=== PATIENT | female | born 1950 | race Caucasian/White ===

== ENCOUNTER 2016-06-21 17:32 | Emergency (ER) | payer OTHER ==
[2016-06-21 18:26] VITALS: BP 162/107
--- NOTE | 2016-06-21 18:49 | EDM.PDOC ---
ED HPI Skin/Rash - General Chief Complaint: Headache Stated Complaint: HEAD PAIN Time Seen by Provider: 06/21/16 18:20 Source: Reports: Patient, Family (Supposed provide some history) History Limitations: Reports: Other (Poor memory for recent events) - History of Present Illness INITIAL COMMENTS - FREE TEXT/NARRATIVE: Brought in by because of persisting pain in her scalp Chief complaint Painful red area of scalp HPI 65-year-old male who started developing pain redness swelling in her scalp right posterior area about 1-1/2 weeks ago. She is unclear exactly when it started and is unclear if the redness of the rash or the pain came first. Describes it as being a T. and sore. No history of injury or fall. Seen in urgent care yesterday at her hometown [place], there was some concern that she might event, and was told to go to the emergency room. Alternatively they recommended seeing a skin doctor which the was able to arrange. The skin doctor felt it was an infection and prescribed doxycycline. She remembers having some sort of information like this in the past. It hurts to touch the area feels better to have cord on the area, has had 2 or 3 doses of the antibiotic and has not noticed any improvement. Had shingles vaccine about a year ago. Had varicella as a child. History bipolar disorder, vacationing in the area. No definite history of trauma. reports no change in behavior and there has been normal appetite no vomiting. In the last few weeks she's developed redness and cracking of the corners of the mouth. She was prescribed Diflucan for this by the skin doctor and this seems to help that already. Does not have dentures Does not have diabetes - Related Data Allergies Allergy/AdvReac Type Severity Reaction Status Date / Time cephalexin Allergy Cannot Verified 06/21/16 17:55 Remember lamotrigine [From Lamictal] Allergy Cannot Verified 06/21/16 17:55 Remember trazodone Allergy Cannot Verified 06/21/16 17:55 Remember Home Meds: Ambulatory Orders Medication Instructions Recorded Confirmed Amitriptyline [Elavil] 300 mg PO DAILY 06/21/16 06/21/16 Aztreonam [Azactam] 06/21/16 ClonazePAM [KlonoPIN] 1 mg PO DAILY 06/21/16 06/21/16 Esomeprazole [NexIUM] 20 mg PO DAILY 06/21/16 06/21/16 Hydrocodone/Acetaminophen 1 - 2 each PO Q4H PRN #12 tablet 06/21/16 [Hydrocodon-Acetaminophen 5-325] Levothyroxine [Synthroid] 06/21/16 Lipase/Protease/Amylase [Zenpep DR 40,000 unit PO ASDIRECTED 06/21/16 06/21/16 20,000 Unit] Pilocarpine HCl [Salagen] 5 mg PO TID 06/21/16 06/21/16 Spironolactone [Aldactone] 25 mg PO DAILY 06/21/16 06/21/16 Zolpidem Tartrate [Ambien Cr] 12.5 mg PO DAILY 06/21/16 06/21/16 tiZANidine [Zanaflex] mg PO DAILY 06/21/16 Past Medical History HEENT History: Reports: Allergic rhinitis Cardiovascular History: Reports: Angina Respiratory History: Reports: Asthma, SOB [employer]OR History: Reports: Musculoskeletal History: Reports: Back pain, chronic, Fracture Psychiatric History: Reports: Bipolar Other Psychiatric History: personality dissorder Endocrine/Metabolic History: Reports: Hypothyroidism, Obesity/BMI 30+ - Past Surgical History Other Cardiovascular Surgeries/Procedures: vaso spams GI Surgical History: Reports: Colonoscopy Female Surgical History: Reports: Hysterectomy Musculoskeletal Surgical History: Reports: Other (see below) Other Musculoskeletal Surgeries/Procedures:: back surgery Social & Family History - Tobacco Use Smoking Status *Q: Never Smoker - Caffeine Use Caffeine Use: Reports: Coffee - Recreational Drug Use Recreational Drug Use: No ED ROS GENERAL - Review of Systems Review Of Systems: See Below Constitutional: Denies: fever, chills, malaise, weakness, diaphoresis, decreased appetite HEENT: Reports: Eye pain, Other (Pain and redness at the corners of the mouth). Denies: Nose pain, Rhinitis, Throat pain Respiratory: Reports: No Symptoms Cardiovascular: Reports: No symptoms Endocrine: Reports: no symptoms GI/Abdominal: Reports: No symptoms : Reports: no symptoms Musculoskeletal: Reports: no symptoms Skin: Reports: erythema (Red raised patch of the scalp) Neurological: Reports: Headache ( related to the red area of her scalp). Denies : Confusion, Numbness, Syncope, Trouble Speaking, Difficulty Walking, Gait Disturbance Psychiatric: Reports: Other (Pre-existing bipolar disorder, currently stable, no change in behavior, poor short-term memory) Hematologic/Lymphatic: Reports: no symptoms Immunologic: Reports: no symptoms ED EXAM, SKIN/RASH Exam: See Below Exam Limited By: No limitations General Appearance: alert, anxious, mild distress, other (Bit anxious and otherwise appearing well, mild tachycardia and mild elevation of blood pressure , no difficulty speaking or breathing) Eye Exam: bilateral eye: EOMI, normal inspection Ears: normal external exam Nose: normal inspection, normal mucosa Throat/Mouth: Normal inspection, Normal oropharynx Head: atraumatic Neck: normal inspection, non-tender, other (No occipital adenopathy). No: lymphadenopathy (R), lymphadenopathy (L) Respiratory/Chest: no respiratory distress (and ), no accessory muscle use Cardiovascular: normal peripheral pulses, regular rate, rhythm, tachycardia Neurological: alert, oriented, no motor/sensory deficits Psychiatric: anxious Skin: Warm, Dry (And will), Erythema (Raised slightly but. Of the right occipital scalp. Appears to be 2 patches, no vesicles or open areas, irregular indistinct border.) Location, Skin: head (And) Characteristics: macular, patchy Associated features: warmth, tenderness, swelling Lymphatic: no adenopathy Course - Vital Signs Last Recorded V/S: Last Vital Signs Temp 37.2 C 06/21/16 18:04 Pulse 112 H 06/21/16 18:04 Resp 20 06/21/16 18:04 BP 162/107 H 06/21/16 18:04 Pulse Ox 97 06/21/16 18:04 - Re-Assessments/Exams Free Text/Narrative Re-Assessment/Exam: 06/21/16 19:00 65-year-old female with raised red painful area of the occipital scalp, 2 patches. Differential diagnosis includes staphylococcal skin infection, streptococcal skin infection, viral skin infection such as varicella zoster, fungal skin infection. The pain and the history did not suggest varicella. She's only started treatment with the antibiotics I would suggest continuing this. Prescribed pain medication. Recheck in one week, at that time she will be returning home. Recheck sooner if there is an open area or blister that can be sampled for culture. Also rechecked promptly if there is high fever vomiting or worsening of symptoms. Departure - Departure Time of Disposition: 18:46 Disposition: Home, Self-Care 01 Condition: good Clinical Impression: Skin infection Prescriptions: Hydrocodone/Acetaminophen [Hydrocodon-Acetaminophen 5-325] 1 - 2 each PO Q4H PRN #12 tablet PRN Reason: Moderate to severe pain Instructions: Cellulitis, Adult Referrals: PCP,None [Primary Care Provider] - Forms: ED Department Discharge Additional Instructions: Please get your skin rechecked by your physician or systems specialist in one week if not improving Topical treatment such as bacitracin ointment or Lanacane maybe helpful for the discomfort and Get rechecked promptly if he developed a blister or a weeping sore in the area of the redness, or if you develop a high fever over 24 hours
== END 2016-06-21 18:56 | disposition home or self-care (01) ==
LOC: JP.ED 17:32
DX: L08.9 Local infection of the skin and subcutaneous tissue, unspecified (principal); I20.9 Angina pectoris, unspecified; F31.9 Bipolar disorder, unspecified; E03.9 Hypothyroidism, unspecified; E66.9 Obesity, unspecified; Z68.37 Body mass index [BMI] 37.0-37.9, adult; Z90.710 Acquired absence of both cervix and uterus; Z98.890 Other specified postprocedural states; Z79.899 Other long term (current) drug therapy; Z88.1 Allergy status to other antibiotic agents; Z88.8 Allergy status to other drugs, medicaments and biological substances
CPT/HCPCS: 99284